=== PATIENT | male | born 1980 | race Caucasian/White ===

== ENCOUNTER 2017-04-23 09:53 | Emergency (ER) | payer OTHER ==
[~2017-04-23] VITALS: Ht 188 cm; Wt 81.9 kg
[2017-04-23 09:58] VITALS: TEMP 97.7; Ht 188 cm; Wt 81.9 kg
--- OUTSIDE RECORDS SUMMARY | 2017-04-23 09:58 | XMS REPORT | Summary of Care ---
Author Author Leanne Vasquez M.D. Organization Unknown Address Unknown Phone Unavailable Care Team Providers Care Associate Professor Of Law Name Role Phone Leanne Vasquez M.D. Unavailable Unavailable Alba Salas Unavailable Unavailable Unavailable Unavailable Functional Status Name Dates Details Functional status health issues are not documented Status: Name Dates Details Cognitive status health issues are not documented Status: Problems Name Dates Details Anxiety (300.00, F41.9) Status: Active RACHNA on CPAP (327.23, G47.33) Status: Active Allergic rhinitis due to pollen (477.0, J30.1) Status: Active Allergic rhinitis due to other allergen (477.8, J30.89) Status: Active Chronic allergic conjunctivitis (372.14, H10.45) Status: Active Medications Name Dates Details Lexapro 20 MG Oral Tablet TAKE 1 TABLET DAILY. Leanne Vasquez M.D. * Start 04-Aug-2016 Active Montelukast Sodium 10 MG Oral Tablet TAKE ONE TABLET BY MOUTH EVERY EVENING * Quantity: 1 Refills: 6 Leanne Vasquez M.D. * Start 04-Aug-2016 Active 30 Tablet Bottle Allergies and Adverse Reactions Name Dates Details No Known Drug Allergies (Allergy) Status: Active Procedures Procedure Dates Details History of Ear Pressure Equalization Tube Procedures not documented Immunization Name Dates Details Immunizations not documented Family History Name Dates Details Family history of allergic rhinitis (V19.6, Z84.89) Comments: Family History Status: Active Name Dates Details Family history of allergic rhinitis (V19.6, Z84.89) Status: Active Name Dates Details Family history of allergic rhinitis (V19.6, Z84.89) Status: Active Social History Name Dates Details - Status: Name Dates Details Never smoker Vital Signs Date Test Result Details 04-Aug-2016 09:32 BP Systolic 124 mm[Hg] Status: Comments: Location: ; Position: BP Diastolic 81 mm[Hg] Status: Comments: Location: ; Position: Temperature 97.7 f Status: Comments: Method: Heart Rate 59 /min Status: Comments: Location: ; Height 74 in Status: Weight 200 lb Status: Body Mass Index Calculated 25.68 kg/m2 Status: Body Surface Area Calculated 2.17 m2 Status: Results Date Description Value Details Results not documented Plan of Care Name Dates Details Planned Observations Planned Goals not documented Planned Encounters Appointment; Provider: Leanne Vasquez M.D. On 31-Jan-2017 14:30 Interventions Provided Medication Changes* Montelukast Sodium 10 MG Oral Tablet - Start Instructions Name Dates Details Instructions not documented Encounters Appointment; Leanne Vasquez M.D. Encounter Diagnosis: Problem not documented On 04-Aug-2016 09:30
--- NOTE | 2017-04-23 10:08 | NUR ---
DR KOCH IN
[2017-04-23] MEDS ORDERED: ESCI20TA PO (10:14)
--- NOTE | 2017-04-23 10:55 | NUR ---
REPORT TO TIA RN
--- NOTE | 2017-04-23 11:01 | ERPDOC ---
Departure Disposition Decision Date: April 23, 2017 Disposition Decision Time: 11:01 Disposition: 01 DISCHARGED HOME, SELF-CARE Impression Impression Impression: Primary Impression: Tear of distal tendon of biceps Severity: Moderate Condition: Stable Seen By: Physician only Referrals: DANYEL HAAS MD (Family) CIRA ONTIVEROS MD Patient Instructions: Repairs of the Biceps and Triceps Tendons (DC) Problems/Meds/Labs Reviewed?: Yes Medications reviewed and manag: Yes Additional Instructions: Use sling for comfort. [place] 5 mg, one tablet every 6 hours as needed for pain. Ice pack to elbow as needed. Follow-up with Dr. Ontiveros on Tuesday. Follow up care ordered?: Yes Mental Status: Alert, Oriented Scripts Hydrocodone/Acetaminophen ([place] 5-325 Tablet) 5-325 Tablet 1 TAB PO QID Y for PAIN, #20 TAB 0 Refills Prov: EPI KOCH MD 04/23/17 HPI - Upper Extremity General Chief Complaint: Upper Extremity Injury Stated Complaint: POSSIBLE BICEP SEPERATION Time Seen by MD: 10:19 HPI - Upper Extremity Initial Comments 86-year-old male with elbow pain. Patient was lifting a 5/8 inch sheet of particle board. These weigh approximately 80 pounds. He had his left arm down lifting while his right arm was stabilizing the board. As he lifted the board he felt 2 pops at the elbow, sudden pain, and loss of strength. He presents to the ED for evaluation. No previous injury to this elbow. He works out 3 days a week lifting and is fairly active. Past medical history is negative. Allergies: Coded Allergies: No Known Allergies (Unverified , 04/23/17) Past History Past Medical History Pt denies signifigant PMH Surgical History Denies Surgeries Review of Systems Musculoskeletal General: see HPI All other Systems All Other Systems: Reviewed and Negative Physical Exam General General Nourishment: well nourished, well developed, appears stated age Distress Description Pain with supination of the left arm Vitals and Pain First Documented Vital Signs Date Time Temp Pulse Resp B/P Pulse Ox O2 Delivery O2 Flow Rate FiO2 04/23/17 09:58 97.7 58 16 117/63 98 Room Air Weight: Kilograms: 81.900 Height (feet): 6 Height (inches): 2.00 Triage Pain Scale: Normal Exams: Head: Normocephalic w/o trauma Chest/Resp: Clear all [place], with good airflow, and symmetry bilaterally CV: Regular rate and rhythm, without murmur or gallop, Pulses 2+ all extremities, capillary refill, <2 seconds all ext., no pedal edema noted Neurologic: Patient is alert, and oriented, cranial nerves, motor/sensory/ cerebellar, exams w/o gross deficits, to observation Psychiatric: Patient exhibits, appropriate attention, emotion and affect Integumentary (brief) Comments Tenderness and bruising at antecubital. Pain with supination and flexion of arm. Differential Diagnoses Considering: Other (bicep tear proximal, biceps tear distal, rotator cuff, elbow trauma) Progress Results/Orders Orders Procedure Category Date Status Time Humerus Left 2 View RAD 04/23/17 Taken Premade Splint EDM 04/23/17 Transmitted 10:55 Sling EDM 04/23/17 Transmitted 10:55 Progress Progress Patient has distal biceps tear, most likely complete. X-ray shows no bony changes. I spoke with Dr. Ontiveros, who came over to evaluate the patient in the ED. He agreed with diagnosis of distal bicep tear. Recommended the patient have relatively urgent surgery to keep the tendon tract from scarring down. Patient is in agreement and will see Dr. Ontiveros on Tuesday in the office. Sling for comfort. [place] when necessary, although patient's pain is fairly minimal at rest. EPI KOCH MD April 23, 2017 11:01
[2017-04-23] MEDS ORDERED: HYDR-4246 PO (11:03)
[2017-04-23 11:13] VITALS: BP 120/64; PULSE 62; RESP 12; O2SAT 96
--- NOTE | 2017-04-23 11:13 | NUR ---
DEPART PT AMBULATORY TO LOBBY WITH FAMILY, SLING IN PROPER PLACEMENT.
--- NOTE | 2017-04-23 11:43 | DI ---
Indication: ITS.REASON: ELBOW PAIN, POSSIBLE BICEPS TEAR PROCEDURE: HUMERUS LEFT 2 VIEW: Encounter: Initial Comparison: None Findings: There is no acute fracture, dislocation or malalignment identified. Impression: No acute osseous abnormality. .
== END 2017-04-23 11:13 | disposition home or self-care (01) ==
LOC: ED 09:53
DX: S46.212A Strain of muscle, fascia and tendon of other parts of biceps, left arm, initial encounter (principal); X50.0XXA Overexertion from strenuous movement or load, initial encounter; Y93.89 Activity, other specified; Y92.9 Unspecified place or not applicable; Y99.8 Other external cause status

== ENCOUNTER → 2017-04-26 | Outpatient (CLI) | payer OTHER ==
[~2017-04-26] MED LIST: ESCI20TA PO; HYDR-4246 PO
[2017-04-26 11:36] LABS: BASOPHILS % (AUTO) 0.3 % (0-2); EOSINOPHILS # (AUTO) 0.1 T/MM3 (0-0.5); EOSINOPHILS % (AUTO) 0.8 % (0-4); HCT - HEMATOCRIT 42.8 % (41-53); HGB - HEMOGLOBIN 14.5 GM/DL (13.5-17.5); LYMPHOCYTES % (AUTO) 30.7 % (23-45); MEAN CORPUSCULAR HGB 30.8 UUG (26-34); MEAN CORPUSCULAR HGB CONC(MCHC 33.9 GM/DL (31-37); MEAN CORPUSCULAR VOLUME 90.9 UM3 (80-100); MEAN PLATELET VOLUME 12.1 UM3 (9.4-12.4); MONOCYTES # (AUTO) 0.5 T/MM3 (0-0.8); MONOCYTES % (AUTO) 7.5 % (0-9.0); NEUTROPHILS % (AUTO) 60.7 % (33-66); RED BLOOD COUNT 4.71 M/MM3 (4.50-5.90); WBC - WHITE BLOOD COUNT 6.5 T/MM3 (4.5-11.0)
[2017-04-26 11:48] LABS: ANION GAP 10 MEQ/L (5-15); BUN/CREATININE RATIO 13 RATIO (6-26); CALCIUM 9.7 MG/DL (8.4-10.2); CHLORIDE 104 MEQ/L (98-107); CO2 - CARBON DIOXIDE 30 MEQ/L (22-30); CREATININE 1.2 MG/DL (0.8-1.5); GLOMERULAR FILTRATION RATE 68; GLUCOSE 98 MG/DL (75-110); POTASSIUM 4.4 MEQ/L (3.6-5); SODIUM 144 MEQ/L (134-144)
== END ==
LOC: LAB 11:07
PROVIDERS: ATTEND Orthopaedic Surgery
DX: Z01.818 Encounter for other preprocedural examination (principal)
CPT/HCPCS: 80048; 85025; 93005